=== PATIENT | female | born 1975 | race Caucasian/White ===

== ENCOUNTER 2019-01-09 20:04 | Emergency (ER) | payer OTHER ==
[~2019-01-09] VITALS: Ht 165.1 cm; Wt 89.8 kg
[2019-01-09 20:05] VITALS: BP 113/76
--- NOTE | 2019-01-09 20:19 | NUR ---
JEET ALS TO ER BED 6
--- NOTE | 2019-01-09 20:38 | NUR ---
PT TO ED WITH C/O ETOH INTOXICATION. +N/V. PT IS TEARFUL AT THIS TIME. PT DENIES SI/HI. OBVIOUS ODOR OF ETOH NOTED. PT PLACED INTO BED, BEDRAILS UP X 2. PT AT BEDSIDE. PMH--DENIES NKDA
--- NOTE | 2019-01-09 21:20 | NUR ---
Patient being evaluated by physician at bedside.
[2019-01-09] MEDS ORDERED: NACL 0.9% 1,000 ML IV ONE (21:30)
[2019-01-09] MEDS ORDERED: ONDANSETRON 4 MG/2 ML VIAL IVP ONE (21:30)
[2019-01-09 21:50] LABS: BASOPHILS % (AUTO) 0.5 % (0.0-2.0); EOSINOPHILS # (AUTO) 0.1 K/uL (0-0.4); EOSINOPHILS % (AUTO) 1.4 % (0.0-4.0); HEMATOCRIT 36.8 % (36-48); HEMOGLOBIN 12.1 g/dL (12.0-16.0); LYMPHOCYTES # (AUTO) 1.2 K/uL (2.5-16.5); LYMPHOCYTES % (AUTO) 13.8 % (20.5-51.1); MEAN CORPUSCULAR HEMOGLOBIN 30 pg (27-31); MEAN CORPUSCULAR HGB CONC 33 g/dL (33-37); MEAN CORPUSCULAR VOLUME 91.5 fL (80-94); MONOCYTES # (AUTO) 0.4 K/uL (0.8-1.0); MONOCYTES % (AUTO) 4.5 % (1.7-9.3); NEUTROPHILS # (AUTO) 6.8 K/uL (1.8-7.7); NEUTROPHILS % (AUTO) 79.8 % (42.2-75.2); PLATELET COUNT (AUTO) 285 K/uL (140-450); RED BLOOD CELL COUNT(AUTO) 4.03 MIL/uL (4.20-5.40); RED CELL DISTRIBUTION WIDTH 14.3 % (11.6-13.7); WHITE BLOOD COUNT (AUTO) 8.5 K/uL (4.8-10.8)
[2019-01-09] MEDS ORDERED: METOCLOPRAMIDE 10 MG/2 ML INJ VIAL IVP ONE (22:00)
[2019-01-09 22:12] LABS: ALBUMIN 3.8 g/dL (3.4-5.0); ANION GAP 15.4 (8-16); CARBON DIOXIDE 24.6 mmol/L (21-32); CREATININE 0.7 mg/dL (0.6-1.3); TOTAL BILIRUBIN 0.2 mg/dL (0.0-1.0)
--- NOTE | 2019-01-09 22:45 | NUR ---
PT SLEEPING AT THIS TIME. WILL CONTINUE TO MONITOR. VSS. AT BEDSIDE.
--- NOTE | 2019-01-09 23:20 | NUR ---
PT AMBULATED TO BATHROOM W ASSIST FROM .
[2019-01-09 23:32] VITALS: BP 118/73
--- NOTE | 2019-01-11 12:10 | NUR ---
Late entry. Confirmed with RN that 1000 ml 0.9 NS IV bolus completed at 2240.
== END 2019-01-09 23:32 | disposition home or self-care (01) ==
LOC: MED 20:04
DX: F10.129 Alcohol abuse with intoxication, unspecified (principal); R11.2 Nausea with vomiting, unspecified; Z88.6 Allergy status to analgesic agent; Z88.5 Allergy status to narcotic agent
CPT/HCPCS: 36415; 80053; 85025; 96361; 96374; 96375; 99283; G0482; J2405; J2765; J7030